=== PATIENT | female | born 1995 | race Caucasian/White ===

== ENCOUNTER → 2020-04-12 16:20 | Outpatient (CLI) | payer OTHER, MEDICAID, SELFPAY ==
[2020-04-12 17:39] LABS: Follicle Stimulating Hormone 5.39 mIU/mL; Luteinizing Hormone 3.16 mIU/mL
== END ==
PROVIDERS: PCP Obstetrics & Gynecology; Referring Provider Obstetrics & Gynecology; Visit Provider Obstetrics & Gynecology
DX: N92.6 Irregular menstruation, unspecified (principal)
CPT/HCPCS: 36415; 83001; 83002

== ENCOUNTER 2020-06-17 08:08 | Day surgery (SDC) | payer OTHER, MEDICAID, SELFPAY ==
[2020-06-16 12:16] VITALS: BMI 23.3
[2020-06-17] VITALS (9 sets, daily range): BP systolic 112–137; BP diastolic 76–92; PULSE 76–121; RESP 11–169; TEMP 36.4–37; O2SAT 97–100; BMI 23.0
[2020-06-17 08:47] LABS: COVID19 -Nasal RAPID Negative (Negative)
[2020-06-17] MEDS: ACETAMINOPHEN 325 MG TABLET 975 MG PO (08:52)
[2020-06-17] MEDS: LACTATED RINGERS 1,000 ML 42 ML IV (08:53)
--- NOTE | 2020-06-17 09:57 | PM.HP.1 ---
History of Present Illness History of Present Illness Date Patient Seen: 06/17/20 Time Patient Seen: 09:58 Chief complaint: SDC Narrative: Patient is a 25-year-old 0 who presents for a laparoscopic removal of a left ovarian cyst and possible fulguration of endometriosis She has polycystic ovaries, and pelvic pain. Patient History Family & Social History Social History: household members family Tobacco & Substance use: Tobacco type cannabis/marijuana Smoking Status Current every day smoker alcohol intake current alcohol intake frequency a few times a week Substance Use Type marijuana Meds Home Medications and Allergies Home Medications Medication Instructions Recorded Confirmed Type albuterol sulfate [Proventil HFA] 2 puff INH Q4HP #1 gm 02/07/16 06/17/20 Rx duloxetine 60 mg capsule,delayed 90 mg PO DAILY 04/12/20 06/17/20 History release fluticasone propionate 50 1 spray NASAL DAILY 04/12/20 06/17/20 History mcg/actuation nasal spray,suspension methocarbamol 500 mg tablet 500 mg PO PRN PRN 04/12/20 06/17/20 History alprazolam 0.25 mg tablet 0.25 mg PO ONCE #1 tab 05/04/20 06/17/20 Rx Allergies Allergy/AdvReac Type Severity Reaction Status Date / Time NITRIC OXIDE Allergy Mild HYSTERICAL Uncoded 04/12/20 15:31 Exam Vital Signs (past 8 hours): - 06/17/20 08:35 Temperature 98.6 F Pulse Rate 98 H Respiratory Rate 20 Blood Pressure 129/92 H Pulse Oximetry 97 Oxygen Delivery Method Room Air Oxygen Flow Rate 0 Narrative Exam Narrative: HEENT: No thyromegaly, no anterior cervical or supraclavicular lymphadenopathy. Lungs:Clear to auscultation bilaterally, no wheezes. Cardiovascular: Regular rate and rhythm, no murmurs, rubs, or gallops. Abdomen: No scars. No hepatosplenomegaly. No masses palpable. External genitalia: Normal Vagina: Normal Cervix: Normal Bimanual exam: 6 Week size anteverted uterus. Mobile. Left adnexal fullness and tenderness. Right adnexa normal Rectal: No masses. Objective Labs Labs: Laboratory Results - last 24 hr 06/17/20 08:25 COVID-19 PCR Negative Assessment & Plan Assessment & Plan narrative: Assessment: 25-year-old 0 with a left ovarian cyst and pelvic pain Plan: Laparoscopic removal of left ovarian cyst and possible fulguration of endometriosis The risks, benefits, and alternatives to the procedure were explained to the patient. The risks including bleeding, infection, injury to the bowel, bladder, or ureters. She understands these risks and agrees to proceed. A full par Q was held and consent form was signed. COVID-19 COVID-19 status: Negative Result date/Date tested (Pos, Neg/Pending): 06/17/20 Time Spent With Patient Time with patient: less than 15 minutes
--- NOTE | 2020-06-17 10:00 | PM.PREOP ---
Pre-operative Note COVID-19 COVID-19 status: Negative Result date/Date tested (Pos, Neg/Pending): 06/17/20 Interval Note History & Physical reviewed/Exam performed by Physician: Yes Changes to H&P: No H&P completed within 30 days and has changed as indicated here:: 06/17/20
[2020-06-17] MEDS: MIDAZOLAM 2 MG/2 ML VIAL IV (10:12)
--- NOTE | 2020-06-17 10:42 | SUR.OPER ---
Lithotomy on padded OR bed, head on pillow, arms padded and tucked at sides. Legs secured in padded yellow fins stirrups.
[2020-06-17] MEDS: BUPIVACAINE 0.5% W/ EPI (PF) 30 ML VIAL INJ (10:48)
--- NOTE | 2020-06-17 10:57 | P.OP_ITS ---
Operative Date/Time/Diagnoses Date of procedure: 06/17/20 Time of procedure: 10:57 Pre-op diagnosis: Pelvic pain Left ovarian cyst Post-op diagnosis: same Procedure & Clinicians Procedure: Procedures Operation Date: 06/17/20 09:45 Actual Procedures Side Surgeon p Laparoscopic Ovarian Left Cystectomy, Poss. fulguration of endometriosis Karly Arzate MD Indications: Pelvic pain Left ovarian cyst Surgeon: Karly Arzate Anesthesia Type: General Operative Notes Findings: Six week size anteverted uterus Normal tubes and ovaries Normal liver and gallbladder Normal appendix No evidence of endometriosis Specimen(s): none Estimated blood loss (mL): 5 Blood products transfused: none Procedure in detail: After informed consent was obtained, the patient was taken to the operating room where she was placed in the dorsal supine position. After adequate general endotracheal anesthesia was achieved, she was placed in the dorsal lithotomy position, and prepped and draped in the usual sterile fashion. A time-out was performed. A bivalve speculum was placed into the vagina and the anterior lip of the cervix grasped with a single-tooth tenaculum. Cervical os was sequentially dilated until the Zumi uterine manipulator could pass easily into the endometrial cavity. The single-tooth tenaculum was removed from the anterior lip of the cervix. The bivalve speculum was removed from the vagina. Attention was then turned to the abdomen where 6 cc of 0.5% Marcaine with epinephrine were injected just below the umbilical fold. A 5 mm incision was made. The Veress needle was placed into the peritoneal cavity, and its placement confirmed by aspiration and drop test. The abdominal cavity was insufflated with 3.4 L of CO2. The Veress needle was removed, and a 5 mm trocar was placed without difficulty. Initial inspection of the abdomen revealed the f indings noted above. A 2nd incision was made 4 cm lateral to the midline on the left side after 6 cc of 0.5% Marcaine with epinephrine were injected. A 2nd 5 mm incision was made. A 5 mm trocar was placed under direct visualization. A probe was placed through the lateral incision and both tubes and ovaries were identified. The cyst on the left ovary had ruptured and there was a small amount of fluid in the posterior cul-de-sac. No cysts, or endometriosis were visualized. The tubes were normal bilaterally. The ovarian fossa were inspected and were normal. The anterior and posterior cul-de-sacs were inspected and were normal. The instruments were removed from the abdomen. The CO2 was allowed to escape. The trocars were removed from the abdomen. The incisions were repaired with 4 0 Biosyn in a subcuticular fashion. Steri-Strips were placed. Allevyn dressings were placed over the 2 incisions. The Zumi uterine manipulator was removed from the uterus. Sponge, lap, and instrument counts were correct x2. Patient tolerated the procedure well, and was taken to PACU in stable condition. Complications: none Post-operative Condition: stable Disposition: PACU Plan for aftercare: Home after Recovery
[2020-06-17] MEDS: OXYCODONE IR 5 MG TABLET PO (11:25)
--- NOTE | 2020-06-17 11:59 | SUR.PHASEII ---
Pt has met discharge criteria. VSS. Denied significant pain or nausea. Able to eat/drink without difficulty. Discharge instructions discussed with pt, all questions answered. IV access removed, pt allowed to dress. To be transported to private vehicle via W/C/
== END 2020-06-17 12:04 | disposition home or self-care (01) ==
PROVIDERS: PCP Obstetrics & Gynecology; Referring Provider Obstetrics & Gynecology; Visit Provider Obstetrics & Gynecology
PROC: (CPT 49320; principal; 2020-06-17 09:45)
DX: N83.292 Other ovarian cyst, left side (principal); Z01.818 Encounter for other preprocedural examination; Z20.828 Contact with and (suspected) exposure to other viral communicable diseases
CPT/HCPCS: 49320; 81025; 87635; J1100; J2250; J2405; J3010

== ENCOUNTER → 2020-07-19 16:31 | Outpatient (CLI) | payer OTHER, MEDICAID, SELFPAY ==
[2020-07-19 17:17] LABS: Add Manual Diff / Slide Review NO; Basophils Absolute Auto 0 /uL (0-100); Basophils Percent Auto 0.3 % (0-2); Eosinophils Absolute Auto 100 /uL (0-450); Eosinophils Percent Auto 1.2 % (2-4); Hematocrit 38.9 % (36-46); Hemoglobin 13.2 g/dL (12.0-16.0); Lymphocytes Absolute Auto 3300 /uL (1100-4500); Lymphocytes Percent Auto 29.8 % (25-40); Mean Corpuscular HGB Conc 33.8 % (30-36); Mean Corpuscular Hemoglobin 32.2 PG (26-34); Mean Corpuscular Volume 95.1 fL (80-100); Monocytes Absolute Auto 400 /uL (0-900); Monocytes Percent Auto 3.3 % (3-14); Neutrophils Absolute Auto 7300 /uL (1500-7000); Neutrophils Percent Auto 65.4 % (50-75); Platelet Count 342 X10^3/uL (150-400); Red Blood Cell Count 4.09 X10^6/uL (4.0-5.2); White Blood Cell Count 11.2 X10^3/uL (4.5-11.0)
[2020-07-19 17:33] LABS: HEMOLYSIS < 15 (0-50); Iron 63 ug/dL (37-170)
[2020-07-19 17:45] LABS: Percent Iron Saturation 17 % (15-50); Total Iron Binding Capacity 362 ug/dL (265-497); Transferrin 264 mg/dL (206-381)
[2020-07-19 17:51] LABS: Free T4, Direct Thyroxine 0.79 ng/dL (0.78-2.19)
[2020-07-19 18:07] LABS: Thyroid Stimulating Hormone 0.955 uIU/mL (0.47-4.68)
== END ==
PROVIDERS: PCP Obstetrics & Gynecology; Referring Provider Obstetrics & Gynecology; Visit Provider Obstetrics & Gynecology
DX: R53.83 Other fatigue (principal)
CPT/HCPCS: 36415; 83540; 83550; 84439; 84443; 85025

== ENCOUNTER → 2020-09-06 08:28 | Outpatient (CLI) | payer OTHER, MEDICAID, SELFPAY ==
[2020-09-06 10:09] LABS: Free T4, Direct Thyroxine 1.33 ng/dL (0.78-2.19)
[2020-09-06 10:23] LABS: Thyroid Stimulating Hormone 0.103 uIU/mL (0.47-4.68)
== END ==
PROVIDERS: Referring Provider Obstetrics & Gynecology; Visit Provider Obstetrics & Gynecology
DX: E03.9 Hypothyroidism, unspecified (principal)
CPT/HCPCS: 36415; 84439; 84443